=== PATIENT | male | born 1950 | race Caucasian/White ===

== ENCOUNTER → 2016-12-22 | Outpatient (CLI) | payer BC ==
[2015-02-11 18:48] VITALS: BP 123/63
--- NOTE | 2016-12-22 12:13 | RAD ---
Right and left knee radiograph 12/22/2016 1153 hours Indication: Osteoarthritis, general knee pain Comparison: None available Technique: 2 views of the right and 2 views of the left knee are provided. Findings: Left knee: There is medial joint space narrowing with subcortical sclerosis along the medial femoral condyle and medial tibial plateau. There is tricompartmental osteophytosis. Small knee joint effusion is present. No acute fracture or dislocation. Right knee: There is advanced medial joint space narrowing with subchondral sclerosis involving the medial femoral condyle and medial tibial plateau. There is tricompartmental osteophytosis. Small knee joint effusion is present. Ossific bodies are identified within the suprapatellar bursa with a ring and arc configuration. Impression: 1. Moderate to advanced osteoarthrosis, primarily affecting the medial left knee joint. 2. Moderate to advanced osteoarthrosis, primarily affecting the medial right knee joint. 3. 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
== END | disposition home or self-care (01) ==
LOC: DXRAD 11:39
PROVIDERS: ATTEND Family Medicine
DX: M17.0 Bilateral primary osteoarthritis of knee (principal); D48.0 Neoplasm of uncertain behavior of bone and articular cartilage
CPT/HCPCS: 73560